=== PATIENT | female | born 1995 | race African-American/Black ===

== ENCOUNTER 2020-03-15 23:38 | Emergency (ER) | payer MEDICAID ==
[~2020-03-15] VITALS: Ht 160 cm; Wt 61.0 kg
[2020-03-16 01:02] LABS: CLARITY URINE CLOUDY (CLEAR); COLOR URINE YELLOW (YELLOW); KETONES URINE TRACE (NEGATIVE); LEUKOCYTE ESTERASE URINE 2+ (NEGATIVE); NITRITE URINE NEGATIVE (NEGATIVE); OCCULT BLOOD URINE 2+ (NEGATIVE); PROTEIN URINE TRACE (NEGATIVE); SPECIFIC GRAVITY URINE 1.034 (1.005-1.030)
[2020-03-16 01:05] VITALS: BP 117/74
[2020-03-18 07:07] LABS: NEISSERIA GONORRHOEAE NAA Negative (Negative)
== END 2020-03-16 01:05 | disposition home or self-care (01) ==
LOC: ER 23:38
DX: N76.0 Acute vaginitis (principal)
CPT/HCPCS: 81003; 81025; 87210; 87491; 87591; 99283

== ENCOUNTER 2020-04-17 22:57 | Emergency (ER) | payer MEDICAID ==
[~2020-04-17] VITALS: Ht 165.1 cm; Wt 61.0 kg
[2020-04-18 02:03] LABS: CHLORIDE 108 mEq/L (98-107)
[2020-04-18] MEDS ORDERED: IBUPROFEN 400MG TABLET PO ONE (02:30)
[2020-04-18 02:54] LABS: BASOPHILS % 0.4 % (0.0-2.0); EOSINOPHILS % 0.4 % (0.0-5.0); HEMATOCRIT. 34.4 % (36.0-48.0); HEMOGLOBIN. 11.1 g/dL (12.0-16.0); LYMPHOCYTES % 34.4 % (20.0-50.0); MEAN CORPUSCULAR HEMOGLOBIN 24.3 pg (28.0-32.0); MEAN PLATELET VOLUME 8.5 fl (7.4-10.4); MONOCYTES % 4.7 % (2.0-8.0); NEUTROPHILS % 60.1 % (40.0-76.0); PLATELET 380 x1000/uL (130-400); RED BLOOD CELL COUNT 4.59 mill/uL (4.2-5.4); RED CELL DISTRIBUTION WIDTH 22.4 % (11.6-14.6)
[2020-04-18 03:24] LABS: PLATELET ESTIMATE NORMAL
[2020-04-18 03:30] VITALS: BP 136/81
== END 2020-04-18 03:55 | disposition home or self-care (01) ==
LOC: ER 22:57
DX: M94.0 Chondrocostal junction syndrome [Tietze] (principal)
CPT/HCPCS: 36415; 71045; 80053; 81025; 84484; 85025; 93005; 99285

== ENCOUNTER 2023-01-12 21:29 | Emergency (ER) | payer MEDICAID ==
[~2023-01-12] VITALS: Ht 165.1 cm; Wt 61.3 kg
[2023-01-12 21:45] VITALS: BP 105/77
[2023-01-12] MEDS ORDERED: ONDANSETRON 4MG ODT PO STA (22:09)
[2023-01-12] MEDS ORDERED: ACETAMINOPHEN 325MG TABLET PO STA (22:09)
[2023-01-12] MEDS ORDERED: MAGNESIUM/ALUMINUM HYDROXIDE/SIMETHICONE 30ML UDC PO STA (22:09)
[2023-01-13 00:45] LABS: BASOPHILS % 0.1 % (0.0-2.0); EOSINOPHILS % 1.5 % (0.0-5.0); HEMATOCRIT. 33.9 % (36.0-48.0); HEMOGLOBIN. 10.4 g/dL (12.0-16.0); LYMPHOCYTES % 56.5 % (20.0-50.0); MEAN CORPUSCULAR HEMOGLOBIN 22.7 pg (28.0-32.0); MEAN CORPUSCULAR VOLUME 73.9 fL (81.0-99.0); MEAN PLATELET VOLUME 8.6 fl (7.4-10.4); MONOCYTES % 8.5 % (2.0-8.0); NEUTROPHILS % 33.4 % (40.0-76.0); PLATELET 400 x1000/uL (130-400); RED BLOOD CELL COUNT 4.59 mill/uL (4.2-5.4); RED CELL DISTRIBUTION WIDTH 24.7 % (11.6-14.6)
[2023-01-13 00:52] LABS: CHLORIDE 108 mEq/L (98-107)
[2023-01-13 01:01] LABS: ETHANOL BLOOD < 10 mg/dL
[2023-01-13] MEDS ORDERED: ACET-2708 MT (01:09)
[2023-01-13] MEDS ORDERED: ONDA4TAB50 MT (01:09)
[2023-01-13 01:50] LABS: HCG SCREEN NEGATIVE
[2023-01-13 07:01] LABS: PLATELET ESTIMATE NORMAL
== END 2023-01-13 01:20 | disposition home or self-care (01) ==
LOC: ER 21:29
DX: A08.4 Viral intestinal infection, unspecified (principal); Z13.9 Encounter for screening, unspecified
CPT/HCPCS: 36415; 76705; 80053; 80320; 81025; 83690; 84703; 85025; 99284; Q0162; G0480